=== PATIENT | female | born 2000 | race Caucasian/White ===

== ENCOUNTER 2020-06-28 13:48 | Emergency (ER) | payer MEDICAID ==
[~2020-06-28] VITALS: Ht 162.6 cm; Wt 55.0 kg
[2020-06-28] MEDS ORDERED: ACETAMINOPHEN 325MG TABLET PO ONE (18:30)
[2020-06-28 21:14] VITALS: BP 118/79
== END 2020-06-28 23:14 | disposition home or self-care (01) ==
LOC: ER 13:48
DX: M54.9 Dorsalgia, unspecified (principal); R51.9 Headache, unspecified
CPT/HCPCS: 72070; 81025; 99284